=== PATIENT | female | born 1985 | race Caucasian/White ===

== ENCOUNTER 2020-01-10 14:00 | Inpatient (IN) ==
[2020-01-10] MEDS ORDERED: 0.9 % Sodium Chloride 1,000 ML IVC ONE (14:14)
[2020-01-10] MEDS ORDERED: POTASSIUM CHLORIDE IN 0.9%NACL 40 MEQ/1,000 ML IV.SOLN IV STA (14:29)
[2020-01-10] MEDS ORDERED: Potassium Chloride 40 MEQ, Lidocaine 1% 2 ML in 0.9 % Sodium Chloride 500 ML IVPB ONE (14:36)
[2020-01-10 16:08] LABS: Magnesium 2.1 mg/dL (1.6-2.6)
[2020-01-10] MEDS ORDERED: Naloxone 0.4 MG/ML INJ IVP PRN (16:23)
[2020-01-10] MEDS ORDERED: *HR* LORazepam 2 MG/ML VIAL IVP PRN (16:29)
[2020-01-10] MEDS: 0.9 % Sodium Chloride w KCl 20 MEQ/1,000 ML MLS IVC SCH (17:19)
[2020-01-10] MEDS: *HR* Heparin 5,000 UNIT/ML VIAL SQ SCH (18:37)
[2020-01-11 00:41] LABS: Basophils % 0.3 %; Eosinophils % 0.1 %; Hematocrit 37.2 % (35.3-44.9); Hemoglobin 12.5 g/dL (11.5-15.4); Immature Granulocytes % 0.3 % (0-4); Lymphocytes # 4.2 K/mcL (0.6-4.6); Lymphocytes % 30.1 %; Mean Corpuscular HGB Conc 33.6 g/dL (31.6-35.5); Mean Corpuscular Hemoglobin 29.8 pg (28.0-33.3); Mean Corpuscular Volume 88.6 fL (83.0-100.0); Mean Platelet Volume 9.9 fL (9.4-12.4); Monocytes # 0.7 K/mcL (0.0-1.3); Neutrophils # 8.9 K/mcL (1.6-8.9); Platelet Count 438 K/mcL (140-400); Red Cell Distribution Width 13.4 % (11.5-14.5); Segmented Neutrophils % 64.2 %; White Blood Count 13.9 K/mcL (4.3-11.1)
[2020-01-11 00:51] LABS: BUN/Creatinine Ratio 15 (6-26); Blood Urea Nitrogen 12 mg/dL (6-20); Calcium 8.9 mg/dL (8.6-10.3); Carbon Dioxide 23 mEq/L (23-29); Chloride 113 mEq/L (98-107); Glucose 96 mg/dL (70-105); Osmolality,Calculated 296 (280-300); Potassium 3.9 mEq/L (3.5-5.1); Sodium 143 mEq/L (136-145); eGFR For African Americans > 60 (> 60); eGFR For Non-African Americans > 60 (> 60)
[2020-01-11] MEDS: 0.9 % Sodium Chloride w KCl 20 MEQ/1,000 ML MLS IVC SCH ×2 (01:07→16:30)
[2020-01-11] MEDS: *HR* Heparin 5,000 UNIT/ML VIAL SQ SCH ×2 (06:06→17:04)
[2020-01-11] MEDS: Acetaminophen 325 MG TABLET PO PRN ×2 (17:11→23:38)
[2020-01-11] MEDS: *HR* Promethazine 25 MG/ML VIAL IM PRN (17:11)
[2020-01-11] MEDS ORDERED: 0.9 % Sodium Chloride 1,000 ML IVC SCH (20:00)
[2020-01-11] MEDS: levoFLOXacin 750 MG/150 ML 750 MG/150 ML BAG IVPB SCH (23:47)
[2020-01-12 03:43] LABS: Basophils # 0.1 K/mcL (0.0-0.2); Basophils % 0.4 %; Eosinophils % 0.2 %; Hematocrit 35.6 % (35.3-44.9); Hemoglobin 11.8 g/dL (11.5-15.4); Immature Granulocytes % 0.4 % (0-4); Lymphocytes # 3.3 K/mcL (0.6-4.6); Mean Corpuscular HGB Conc 33.1 g/dL (31.6-35.5); Mean Corpuscular Hemoglobin 30.2 pg (28.0-33.3); Mean Platelet Volume 10.6 fL (9.4-12.4); Monocytes # 0.9 K/mcL (0.0-1.3); Monocytes % 5.3 %; Neutrophils # 12.3 K/mcL (1.6-8.9); Platelet Count 358 K/mcL (140-400); Red Blood Count 3.91 M/mcL (3.82-4.97); Red Cell Distribution Width 13.1 % (11.5-14.5); Segmented Neutrophils % 73.7 %; White Blood Count 16.7 K/mcL (4.3-11.1)
[2020-01-12 04:01] LABS: BUN/Creatinine Ratio 20 (6-26); Blood Urea Nitrogen 13 mg/dL (6-20); Calcium 8.6 mg/dL (8.6-10.3); Carbon Dioxide 20 mEq/L (23-29); Chloride 111 mEq/L (98-107); Glucose 73 mg/dL (70-105); Osmolality,Calculated 291 (280-300); Potassium 3.7 mEq/L (3.5-5.1); Sodium 141 mEq/L (136-145); eGFR For African Americans > 60 (> 60); eGFR For Non-African Americans > 60 (> 60)
[2020-01-12] MEDS: *HR* Heparin 5,000 UNIT/ML VIAL SQ SCH ×2 (04:11→16:59)
[2020-01-12] MEDS: 0.9 % Sodium Chloride w KCl 20 MEQ/1,000 ML MLS IVC SCH ×2 (04:11→14:14)
[2020-01-12] MEDS: *HR* Promethazine 25 MG/ML VIAL IM PRN ×2 (07:22→14:23)
[2020-01-12 16:52] LABS: Adenovirus Not Detected (Not Detect); Bordetella Pertussis Not Detected (Not Detect); Chlamydophila pneumoniae Not Detected (Not Detect); Coronavirus 229E Not Detected (Not Detect); Coronavirus HKU1 Not Detected (Not Detect); Coronavirus NL63 Not Detected (Not Detect); Coronavirus OC43 Not Detected (Not Detect); Human Metapneumovirus Not Detected (Not Detect); Human Rhinovirus/Enterovirus Not Detected (Not Detect); Influenza A Subtype 2009 H1 Not Detected (Not Detect); Influenza B Not Detected (Not Detect); Mycoplasma pneumoniae Not Detected (Not Detect); Parainfluenza Virus 1 Not Detected (Not Detect); Parainfluenza Virus 2 Not Detected (Not Detect); Parainfluenza Virus 3 Not Detected (Not Detect); Parainfluenza Virus 4 Not Detected (Not Detect); Respiratory Syncytial Virus Not Detected (Not Detect); SARS-CoV-2 Not Detected (Not Detect)
[2020-01-13] MEDS: levoFLOXacin 750 MG/150 ML 750 MG/150 ML BAG IVPB SCH (00:02)
[2020-01-13] MEDS: 0.9 % Sodium Chloride w KCl 20 MEQ/1,000 ML MLS IVC SCH (00:02)
[2020-01-13] MEDS: *HR* Heparin 5,000 UNIT/ML VIAL SQ SCH (04:55)
[2020-01-13 05:48] LABS: Basophils # 0.1 K/mcL (0.0-0.2); Basophils % 0.5 %; Eosinophils # 0.1 K/mcL (0.0-0.6); Eosinophils % 0.8 %; Hematocrit 34.9 % (35.3-44.9); Hemoglobin 11.9 g/dL (11.5-15.4); Immature Granulocytes % 0.4 % (0-4); Lymphocytes # 3.3 K/mcL (0.6-4.6); Lymphocytes % 30.8 %; Mean Corpuscular HGB Conc 34.1 g/dL (31.6-35.5); Mean Corpuscular Hemoglobin 30.7 pg (28.0-33.3); Mean Corpuscular Volume 89.9 fL (83.0-100.0); Mean Platelet Volume 10.3 fL (9.4-12.4); Monocytes # 0.5 K/mcL (0.0-1.3); Monocytes % 4.3 %; Neutrophils # 6.7 K/mcL (1.6-8.9); Platelet Count 355 K/mcL (140-400); Red Blood Count 3.88 M/mcL (3.82-4.97); Red Cell Distribution Width 12.8 % (11.5-14.5); Segmented Neutrophils % 63.2 %; White Blood Count 10.6 K/mcL (4.3-11.1)
[2020-01-13 06:09] LABS: BUN/Creatinine Ratio 17 (6-26); Blood Urea Nitrogen 12 mg/dL (6-20); Calcium 8.4 mg/dL (8.6-10.3); Carbon Dioxide 23 mEq/L (23-29); Chloride 110 mEq/L (98-107); Glucose 98 mg/dL (70-105); Osmolality,Calculated 290 (280-300); Potassium 3.5 mEq/L (3.5-5.1); Sodium 140 mEq/L (136-145); eGFR For African Americans > 60 (> 60); eGFR For Non-African Americans > 60 (> 60)
[2020-01-13 08:20] VITALS: BP 135/90
[2020-01-13] MEDS ORDERED: FLU Vac QV 20-21 (6Month+)/PF 0.5 ML SYRINGE IM ONE (10:55)
== END 2020-01-13 12:23 | DRG 812 ==
LOC: 3BNU 14:00 → EMEROOARM 14:00 → 3BNU 17:24 → SUATTDRO 01-11 16:10
PROVIDERS: ADMIT Internal Medicine; ATTEND Internal Medicine

== ENCOUNTER 2020-02-12 14:53 | Observation (INO) ==
[2020-02-12] MEDS ORDERED: Acetaminophen 325 MG TABLET PO PRN (19:22)
[2020-02-12] MEDS ORDERED: 0.9 % Sodium Chloride 1,000 ML IVC ONE (19:38)
[2020-02-12] MEDS ORDERED: 0.9 % Sodium Chloride w KCl 40 MEQ/1,000 ML MLS IVC SCH (20:00)
[2020-02-12 20:46] LABS: BUN/Creatinine Ratio 15 (6-26); Blood Urea Nitrogen 9 mg/dL (6-20); Calcium 9.1 mg/dL (8.6-10.3); Carbon Dioxide 25 mEq/L (23-29); Chloride 110 mEq/L (98-107); Glucose 129 mg/dL (70-105); Magnesium 1.9 mg/dL (1.6-2.6); Osmolality,Calculated 296 (280-300); Sodium 143 mEq/L (136-145); eGFR For African Americans > 60 (> 60); eGFR For Non-African Americans > 60 (> 60)
[2020-02-13 03:26] LABS: BUN/Creatinine Ratio 16 (6-26); Blood Urea Nitrogen 9 mg/dL (6-20); Calcium 8.4 mg/dL (8.6-10.3); Carbon Dioxide 23 mEq/L (23-29); Chloride 114 mEq/L (98-107); Glucose 92 mg/dL (70-105); Magnesium 1.7 mg/dL (1.6-2.6); Osmolality,Calculated 296 (280-300); Potassium 3.1 mEq/L (3.5-5.1); Sodium 144 mEq/L (136-145); eGFR For African Americans > 60 (> 60); eGFR For Non-African Americans > 60 (> 60)
[2020-02-13] MEDS: *HR* Enoxaparin 40 MG/0.4 ML SYRINGE SQ SCH (05:46)
[2020-02-13 08:57] LABS: Basophils # 0.1 K/mcL (0.0-0.2); Basophils % 0.5 %; Eosinophils # 0.1 K/mcL (0.0-0.6); Eosinophils % 1.1 %; Hematocrit 33.6 % (35.3-44.9); Hemoglobin 11.3 g/dL (11.5-15.4); Immature Granulocytes % 0.3 % (0-4); Lymphocytes # 4.1 K/mcL (0.6-4.6); Lymphocytes % 40.5 %; Mean Corpuscular HGB Conc 33.6 g/dL (31.6-35.5); Mean Corpuscular Hemoglobin 29.7 pg (28.0-33.3); Mean Corpuscular Volume 88.4 fL (83.0-100.0); Mean Platelet Volume 10.3 fL (9.4-12.4); Monocytes # 0.5 K/mcL (0.0-1.3); Monocytes % 4.7 %; Neutrophils # 5.4 K/mcL (1.6-8.9); Platelet Count 392 K/mcL (140-400); Red Cell Distribution Width 13.1 % (11.5-14.5); Segmented Neutrophils % 52.9 %; White Blood Count 10.2 K/mcL (4.3-11.1)
[2020-02-13 09:07] LABS: Acetaminophen < 10 mcg/mL (10-20); Salicylate < 2.5 mg/dL (15.0-30.0)
[2020-02-13 09:09] LABS: Alanine Aminotransferase 9 Units/L (7-52); Albumin 3.6 g/dL (3.5-5.7); Albumin/Globulin Ratio 1.4 (1.1-2.2); Alkaline Phosphatase 101 Units/L (34-104); Aspartate Amino Transferase 9 Units/L (13-39); BUN/Creatinine Ratio 17 (6-26); Bilirubin,Direct 0.1 mg/dL (0.0-0.2); Bilirubin,Indirect 0.4 mg/dL (0.0-1.0); Bilirubin,Total 0.5 mg/dL (0.3-1.0); Blood Urea Nitrogen 11 mg/dL (6-20); Calcium 8.9 mg/dL (8.6-10.3); Carbon Dioxide 24 mEq/L (23-29); Chloride 115 mEq/L (98-107); Globulin 2.5 g/dL (2.4-3.5); Glucose 89 mg/dL (70-105); Magnesium 1.8 mg/dL (1.6-2.6); Osmolality,Calculated 297 (280-300); Potassium 3.7 mEq/L (3.5-5.1); Sodium 144 mEq/L (136-145); Total Protein 6.1 g/dL (6.4-8.9); eGFR For African Americans > 60 (> 60); eGFR For Non-African Americans > 60 (> 60)
[2020-02-13] MEDS: Ondansetron 4 MG/2 ML VIAL IVP PRN (09:29)
[2020-02-13 13:32] LABS: Amphetamine Screen,Urine Positive ng/mL (Cutoff=1000); Barbiturate Screen,Urine Negative ng/mL (Cutoff=200); Benzodiazepines Screen,Urine Negative ng/mL (Cutoff=200); Cannabinoid Screen,Urine Positive ng/mL (Cutoff = 50); Cocaine Screen,Urine Negative ng/mL (Cutoff= 300); Opiate Screen,Urine Negative ng/mL (Cutoff=300); Phencyclidine Screen,Urine Negative ng/mL (Cutoff=25)
[2020-02-14 05:29] LABS: Basophils # 0.1 K/mcL (0.0-0.2); Basophils % 0.4 %; Eosinophils # 0.2 K/mcL (0.0-0.6); Eosinophils % 1.1 %; Hemoglobin 11.7 g/dL (11.5-15.4); Immature Granulocytes % 0.3 % (0-4); Lymphocytes # 4.1 K/mcL (0.6-4.6); Lymphocytes % 26.6 %; Mean Corpuscular HGB Conc 33.4 g/dL (31.6-35.5); Mean Corpuscular Hemoglobin 30.3 pg (28.0-33.3); Mean Corpuscular Volume 90.7 fL (83.0-100.0); Mean Platelet Volume 10.2 fL (9.4-12.4); Monocytes # 0.8 K/mcL (0.0-1.3); Neutrophils # 10.3 K/mcL (1.6-8.9); Platelet Count 377 K/mcL (140-400); Red Blood Count 3.86 M/mcL (3.82-4.97); Segmented Neutrophils % 66.6 %
[2020-02-14 05:30] LABS: White Blood Count 15.4 K/mcL (4.3-11.1)
[2020-02-14] MEDS: *HR* Enoxaparin 40 MG/0.4 ML SYRINGE SQ SCH (05:38)
[2020-02-14 05:46] LABS: BUN/Creatinine Ratio 31 (6-26); Blood Urea Nitrogen 22 mg/dL (6-20); Calcium 8.6 mg/dL (8.6-10.3); Carbon Dioxide 25 mEq/L (23-29); Chloride 112 mEq/L (98-107); Glucose 103 mg/dL (70-105); Magnesium 1.7 mg/dL (1.6-2.6); Osmolality,Calculated 296 (280-300); Potassium 3.7 mEq/L (3.5-5.1); Sodium 141 mEq/L (136-145); eGFR For African Americans > 60 (> 60); eGFR For Non-African Americans > 60 (> 60)
[2020-02-14] MEDS: Ondansetron 4 MG/2 ML VIAL IVP PRN (09:43)
[2020-02-14] MEDS ORDERED: Nicotine 21 MG PATCH.TD24 TD SCH (10:00)
[2020-02-14 11:26] LABS: Bacteria,Urine Few per hpf (None-Few); Bilirubin,Urine Negative (Negative); Blood,Urine Trace (Negative); Clarity,Urine Clear (Clear); Color,Urine Colorless (Yellow); Glucose,Urine (UA) Normal (Normal); Ketones,Urine Negative (Negative); Leukocyte Esterase,Urine Negative (Negative); Mucus,Urine Few per lpf (None-Few); Nitrite,Urine Negative (Negative); Protein,Urine Negative (Neg-Trace); RBC,Urine 0-3 per hpf (0-3); Specific Gravity,Urine 1.013 (1.010-1.025); Squamous Epithelial Cell,Urine Few per hpf (None-Few); Urobilinogen,Urine Normal (Normal); WBC,Urine 0-3 per hpf (0-3)
[2020-02-14 11:58] VITALS: BP 142/92
== END 2020-02-14 14:15 ==
LOC: 3BNU → SUATTDRO 18:46
PROVIDERS: ADMIT Internal Medicine; ATTEND Internal Medicine

== ENCOUNTER 2020-12-14 02:56 | Inpatient (IN) ==
[2020-12-14] MEDS ORDERED: Artificial Tears SOLN 15 ML BOTTLE BOTH EYES PRN (05:58)
[2020-12-14] MEDS ORDERED: *HR* Midazolam HCl 2 MG/2 ML VIAL IV ONE (05:58)
[2020-12-14] MEDS ORDERED: FentaNYL (PF) 1,000 MCG/100 ML IV.SOLN IVC SCH (06:00)
[2020-12-14] MEDS ORDERED: Naloxone 0.4 MG/ML INJ IVP PRN (06:03)
[2020-12-14] MEDS ORDERED: 0.9 % Sodium Chloride 1,000 ML IVC SCH (06:15)
[2020-12-14 06:45] LABS: ABG Base Excess -4 mEq/L (-2 to 3); ABG HCO3 21 mEq/L (21-27); ABG Oxygen Saturation 88 % (95-98); ABG PCO2 35 mmHg (35-45); ABG PH 7.39 pH Units (7.32-7.45); ABG PO2 55 mmHg (85-104); ABG TCO2 22 mEq/L (20-26); Blood Gas VT 480 cc
[2020-12-14] MEDS ORDERED: *HR* Rocuronium Bromide 50 MG/5 ML VIAL IVP ONE (07:17)
[2020-12-14] MEDS: Artificial Tears SOLN 15 ML BOTTLE BOTH EYES SCH ×4 (07:21→20:21)
[2020-12-14] MEDS: Pantoprazole 40 MG VIAL IVP SCH (07:21)
[2020-12-14] MEDS: Chlorhexidine Rinse 15 ML MOUTHWASH MM SCH ×2 (07:22→20:20)
[2020-12-14 07:30] LABS: Creatine Kinase 8995 Units/L (30-223); Troponin I < 0.03 ng/mL (< 0.04)
[2020-12-14] MEDS: Piperacillin/Tazobactam 3.375 GM in 0.9 % Sodium Chloride Mini Bag 100 ML IVPB SCH ×2 (11:40→20:22)
[2020-12-14 12:27] LABS: BUN/Creatinine Ratio 22 (6-26); Blood Urea Nitrogen 13 mg/dL (6-20); Calcium 8.2 mg/dL (8.6-10.3); Carbon Dioxide 20 mEq/L (23-29); Chloride 113 mEq/L (98-107); Creatine Kinase 7911 Units/L (30-223); Glucose 121 mg/dL (70-105); Osmolality,Calculated 293 (280-300); Potassium 3.3 mEq/L (3.5-5.1); Sodium 141 mEq/L (136-145); Troponin I < 0.03 ng/mL (< 0.04); eGFR For African Americans > 60 (> 60); eGFR For Non-African Americans > 60 (> 60)
[2020-12-14] MEDS ORDERED: Potassium Chloride Elixir 20 MEQ/15 ML UDC GTUBE ONE (12:50)
[2020-12-14] MEDS: 0.9 % Sodium Chloride 1,000 ML IVC SCH ×2 (13:08→20:22)
[2020-12-14 14:42] LABS: Magnesium 1.6 mg/dL (1.6-2.6); Phosphorous 3.3 mg/dL (2.7-4.5)
[2020-12-14] MEDS ORDERED: *HR* Labetalol 20 MG/4 ML SYRINGE IVP PRN (14:49)
[2020-12-14] MEDS: *HR* Heparin 5,000 UNIT/ML VIAL SQ SCH (17:20)
[2020-12-14] MEDS: Folic Acid 1 MG in 0.9 % Sodium Chloride 50 ML IVPB SCH (20:21)
[2020-12-14] MEDS: Thiamine (B-1) 200 MG in 0.9 % Sodium Chloride 50 ML IVPB SCH (20:21)
[2020-12-14] MEDS ORDERED: *HR* LORazepam 2 MG/ML VIAL IVP PRN ×2 (20:36)
[2020-12-14] MEDS ORDERED: *HR* LORazepam 2 MG/ML VIAL ONE (20:52)
[2020-12-15] MEDS: *HR* LORazepam 2 MG/ML VIAL IVP PRN ×7 (03:17→23:26)
[2020-12-15] MEDS: 0.9 % Sodium Chloride 1,000 ML IVC SCH (03:19)
[2020-12-15] MEDS: Piperacillin/Tazobactam 3.375 GM in 0.9 % Sodium Chloride Mini Bag 100 ML IVPB SCH ×3 (03:31→20:00)
[2020-12-15] MEDS: *HR* Heparin 5,000 UNIT/ML VIAL SQ SCH ×3 (05:26→21:16)
[2020-12-15] MEDS: Dexmedetomidine HCl 400 MCG/100 ML MLS IVC SCH ×3 (05:51→23:18)
[2020-12-15 05:52] LABS: Alanine Aminotransferase 59 Units/L (7-52); Albumin 3.1 g/dL (3.5-5.7); Albumin/Globulin Ratio 1.4 (1.1-2.2); Alkaline Phosphatase 80 Units/L (34-104); Aspartate Amino Transferase 120 Units/L (13-39); BUN/Creatinine Ratio 21 (6-26); Bilirubin,Direct 0.2 mg/dL (0.0-0.2); Bilirubin,Indirect 0.5 mg/dL (0.0-1.0); Bilirubin,Total 0.7 mg/dL (0.3-1.0); Blood Urea Nitrogen 12 mg/dL (6-20); Calcium 8.1 mg/dL (8.6-10.3); Carbon Dioxide 21 mEq/L (23-29); Chloride 111 mEq/L (98-107); Globulin 2.2 g/dL (2.4-3.5); Glucose 110 mg/dL (70-105); Magnesium 1.9 mg/dL (1.6-2.6); Osmolality,Calculated 284 (280-300); Potassium 3.6 mEq/L (3.5-5.1); Sodium 137 mEq/L (136-145); Total Protein 5.3 g/dL (6.4-8.9); eGFR For African Americans > 60 (> 60); eGFR For Non-African Americans > 60 (> 60)
[2020-12-15] MEDS ORDERED: *HR* Enoxaparin 40 MG/0.4 ML SYRINGE SQ SCH (06:00)
[2020-12-15] MEDS ORDERED: *HR* LORazepam 2 MG/ML VIAL IVP PRN ×2 (07:59)
[2020-12-15] MEDS: Pantoprazole 40 MG VIAL IVP SCH (08:12)
[2020-12-15] MEDS: Acetaminophen 325 MG TABLET PO PRN ×2 (08:12→13:59)
[2020-12-15 08:33] LABS: Hematocrit 30.5 % (35.3-44.9); Hemoglobin 10.5 g/dL (11.5-15.4); Mean Corpuscular HGB Conc 34.4 g/dL (31.6-35.5); Mean Corpuscular Hemoglobin 30.5 pg (28.0-33.3); Mean Corpuscular Volume 88.7 fL (83.0-100.0); Mean Platelet Volume 10.3 fL (9.4-12.4); Platelet Count 256 K/mcL (140-400); Red Blood Count 3.44 M/mcL (3.82-4.97); Red Cell Distribution Width 13.3 % (11.5-14.5); White Blood Count 23.7 K/mcL (4.3-11.1)
[2020-12-15] MEDS: Folic Acid 1 MG in 0.9 % Sodium Chloride 50 ML IVPB SCH (08:42)
[2020-12-15] MEDS: Thiamine (B-1) 200 MG in 0.9 % Sodium Chloride 50 ML IVPB SCH (08:57)
[2020-12-15] MEDS ORDERED: Furosemide 40 MG/4 ML VIAL IVP ONE ×3 (10:07→17:42)
[2020-12-15 10:23] LABS: ABG Base Excess -4 mEq/L (-2 to 3); ABG HCO3 19 mEq/L (21-27); ABG Oxygen Saturation 84 % (95-98); ABG PCO2 28 mmHg (35-45); ABG PH 7.44 pH Units (7.32-7.45); ABG PO2 46 mmHg (85-104); ABG TCO2 20 mEq/L (20-26)
[2020-12-15] MEDS ORDERED: Perflutren Lipid Microsphere 1.3 ML in 0.9 % Sodium Chloride 8.7 ML IVP PRN (13:53)
[2020-12-15] MEDS ORDERED: Potassium Chloride Elixir 20 MEQ/15 ML UDC PO ONE (17:46)
[2020-12-15] MEDS: Azithromycin 500 MG in 0.9 % Sodium Chloride 250 ML IVPB SCH (18:15)
[2020-12-15] MEDS ORDERED: Acetaminophen IV 500 MG/50 ML BAG IVPB ONE (19:26)
[2020-12-15 20:16] LABS: ABG Base Excess -1 mEq/L (-2 to 3); ABG HCO3 22 mEq/L (21-27); ABG Oxygen Saturation 92 % (95-98); ABG PCO2 29 mmHg (35-45); ABG PH 7.49 pH Units (7.32-7.45); ABG PO2 57 mmHg (85-104); ABG TCO2 23 mEq/L (20-26); Blood Gas Modality 15LPM
[2020-12-15] MEDS: Vancomycin 1,250 MG/262.5 ML IV.SOLN IVPB SCH (21:19)
[2020-12-16] MEDS: Acetaminophen 325 MG TABLET PO PRN ×3 (00:26→21:41)
[2020-12-16] MEDS: *HR* LORazepam 2 MG/ML VIAL IVP PRN ×4 (04:33→20:31)
[2020-12-16] MEDS: Piperacillin/Tazobactam 3.375 GM in 0.9 % Sodium Chloride Mini Bag 100 ML IVPB SCH ×3 (04:33→18:17)
[2020-12-16] MEDS ORDERED: 0.9 % Sodium Chloride 1,000 ML IVC SCH (05:00)
[2020-12-16] MEDS: Dexmedetomidine HCl 400 MCG/100 ML MLS IVC SCH ×5 (05:08→23:28)
[2020-12-16 05:18] LABS: Hematocrit 31.6 % (35.3-44.9); Hemoglobin 10.4 g/dL (11.5-15.4); Mean Corpuscular HGB Conc 32.9 g/dL (31.6-35.5); Mean Corpuscular Hemoglobin 29.3 pg (28.0-33.3); Platelet Count 260 K/mcL (140-400); Red Blood Count 3.55 M/mcL (3.82-4.97); Red Cell Distribution Width 12.9 % (11.5-14.5); White Blood Count 23.9 K/mcL (4.3-11.1)
[2020-12-16 05:33] LABS: BUN/Creatinine Ratio 21 (6-26); Blood Urea Nitrogen 13 mg/dL (6-20); Calcium 8.4 mg/dL (8.6-10.3); Carbon Dioxide 20 mEq/L (23-29); Chloride 107 mEq/L (98-107); Glucose 110 mg/dL (70-105); Magnesium 1.9 mg/dL (1.6-2.6); Osmolality,Calculated 283 (280-300); Potassium 3.5 mEq/L (3.5-5.1); Sodium 136 mEq/L (136-145); eGFR For African Americans > 60 (> 60); eGFR For Non-African Americans > 60 (> 60)
[2020-12-16] MEDS ORDERED: Furosemide 40 MG/4 ML VIAL IVP ONE (07:19)
[2020-12-16] MEDS: Vancomycin 1,250 MG/262.5 ML IV.SOLN IVPB SCH ×2 (07:51→20:01)
[2020-12-16] MEDS: Pantoprazole 40 MG VIAL IVP SCH (07:57)
[2020-12-16] MEDS: *HR* Heparin 5,000 UNIT/ML VIAL SQ SCH ×3 (07:58→20:02)
[2020-12-16] MEDS: Thiamine (B-1) 200 MG in 0.9 % Sodium Chloride 50 ML IVPB SCH (08:42)
[2020-12-16] MEDS: Folic Acid 1 MG in 0.9 % Sodium Chloride 50 ML IVPB SCH (09:52)
[2020-12-16] MEDS: Azithromycin 500 MG in 0.9 % Sodium Chloride 250 ML IVPB SCH (17:34)
[2020-12-16] MEDS ORDERED: Ibuprofen 600 MG TABLET PO ONE (23:39)
[2020-12-17] MEDS: Piperacillin/Tazobactam 3.375 GM in 0.9 % Sodium Chloride Mini Bag 100 ML IVPB SCH ×3 (03:09→19:18)
[2020-12-17 04:46] LABS: Hematocrit 28.7 % (35.3-44.9); Hemoglobin 9.8 g/dL (11.5-15.4); Mean Corpuscular HGB Conc 34.1 g/dL (31.6-35.5); Mean Corpuscular Hemoglobin 29.4 pg (28.0-33.3); Mean Corpuscular Volume 86.2 fL (83.0-100.0); Mean Platelet Volume 9.9 fL (9.4-12.4); Platelet Count 279 K/mcL (140-400); Red Blood Count 3.33 M/mcL (3.82-4.97); Red Cell Distribution Width 12.4 % (11.5-14.5); White Blood Count 19.5 K/mcL (4.3-11.1)
[2020-12-17 05:06] LABS: BUN/Creatinine Ratio 26 (6-26); Blood Urea Nitrogen 15 mg/dL (6-20); Calcium 8.4 mg/dL (8.6-10.3); Carbon Dioxide 21 mEq/L (23-29); Chloride 105 mEq/L (98-107); Glucose 95 mg/dL (70-105); Magnesium 1.9 mg/dL (1.6-2.6); Osmolality,Calculated 283 (280-300); Potassium 3.2 mEq/L (3.5-5.1); Sodium 136 mEq/L (136-145); eGFR For African Americans > 60 (> 60); eGFR For Non-African Americans > 60 (> 60)
[2020-12-17] MEDS: *HR* Heparin 5,000 UNIT/ML VIAL SQ SCH ×3 (07:46→20:06)
[2020-12-17] MEDS: Pantoprazole 40 MG VIAL IVP SCH (07:46)
[2020-12-17] MEDS: *HR* LORazepam 2 MG/ML VIAL IVP PRN ×3 (08:57→19:28)
[2020-12-17] MEDS ORDERED: Venlafaxine XR (24 HR) 75 MG CAP.ER.24H PO SCH (09:00)
[2020-12-17 09:02] LABS: Basophils # 0.1 K/mcL (0.0-0.2); Basophils % 0.3 %; Eosinophils # 0.4 K/mcL (0.0-0.6); Eosinophils % 2.3 %; Hematocrit 28.7 % (35.3-44.9); Hemoglobin 10.1 g/dL (11.5-15.4); Immature Granulocytes % 1.2 % (0-4); Lymphocytes % 17.1 %; Mean Corpuscular HGB Conc 35.2 g/dL (31.6-35.5); Mean Corpuscular Hemoglobin 30.3 pg (28.0-33.3); Mean Corpuscular Volume 86.2 fL (83.0-100.0); Mean Platelet Volume 9.9 fL (9.4-12.4); Monocytes # 0.7 K/mcL (0.0-1.3); Monocytes % 4.3 %; Platelet Count 285 K/mcL (140-400); Red Blood Count 3.33 M/mcL (3.82-4.97); Red Cell Distribution Width 12.4 % (11.5-14.5); Segmented Neutrophils % 74.8 %; White Blood Count 17.3 K/mcL (4.3-11.1)
[2020-12-17 09:21] LABS: BUN/Creatinine Ratio 27 (6-26); Blood Urea Nitrogen 15 mg/dL (6-20); Calcium 8.5 mg/dL (8.6-10.3); Carbon Dioxide 23 mEq/L (23-29); Chloride 105 mEq/L (98-107); Glucose 90 mg/dL (70-105); Osmolality,Calculated 282 (280-300); Potassium 3.1 mEq/L (3.5-5.1); Sodium 136 mEq/L (136-145); eGFR For African Americans > 60 (> 60); eGFR For Non-African Americans > 60 (> 60)
[2020-12-17] MEDS: Dexmedetomidine HCl 400 MCG/100 ML MLS IVC SCH ×3 (09:46→21:08)
[2020-12-17] MEDS: Vancomycin 1,250 MG/262.5 ML IV.SOLN IVPB SCH ×2 (10:12→19:19)
[2020-12-17] MEDS ORDERED: Vancomycin 1,250 MG/262.5 ML IV.SOLN IVPB SCH ×2 (11:00→20:00)
[2020-12-17] MEDS ORDERED: *HR* Labetalol 20 MG/4 ML SYRINGE IVP PRN (12:08)
[2020-12-17] MEDS ORDERED: Perflutren Lipid Microsphere 1.3 ML in 0.9 % Sodium Chloride 8.7 ML IVP PRN (12:08)
[2020-12-17] MEDS ORDERED: Naloxone 0.4 MG/ML INJ IVP PRN (12:08)
[2020-12-17] MEDS ORDERED: *HR* LORazepam 2 MG/ML VIAL IVP PRN (12:08)
[2020-12-17] MEDS: Acetaminophen 325 MG TABLET PO PRN (15:41)
[2020-12-17] MEDS: Azithromycin 500 MG in 0.9 % Sodium Chloride 250 ML IVPB SCH (18:14)
[2020-12-18] MEDS: *HR* LORazepam 2 MG/ML VIAL IVP PRN ×5 (00:44→22:41)
[2020-12-18] MEDS ORDERED: Ondansetron 4 MG/2 ML VIAL IVP ONE (00:58)
[2020-12-18] MEDS: Acetaminophen 325 MG TABLET PO PRN ×2 (01:34→12:55)
[2020-12-18] MEDS: Dexmedetomidine HCl 400 MCG/100 ML MLS IVC SCH ×4 (02:38→22:27)
[2020-12-18] MEDS: Vancomycin 1,250 MG/262.5 ML IV.SOLN IVPB SCH (02:39)
[2020-12-18] MEDS: Piperacillin/Tazobactam 3.375 GM in 0.9 % Sodium Chloride Mini Bag 100 ML IVPB SCH ×3 (02:40→18:33)
[2020-12-18 06:39] LABS: Hematocrit 28.9 % (35.3-44.9); Hemoglobin 9.8 g/dL (11.5-15.4); Mean Corpuscular HGB Conc 33.9 g/dL (31.6-35.5); Mean Corpuscular Hemoglobin 30.4 pg (28.0-33.3); Mean Corpuscular Volume 89.8 fL (83.0-100.0); Mean Platelet Volume 10.8 fL (9.4-12.4); Platelet Count 241 K/mcL (140-400); Red Blood Count 3.22 M/mcL (3.82-4.97); Red Cell Distribution Width 12.6 % (11.5-14.5); White Blood Count 13.3 K/mcL (4.3-11.1)
[2020-12-18] MEDS: Pantoprazole 40 MG VIAL IVP SCH (08:13)
[2020-12-18] MEDS: Venlafaxine XR (24 HR) 75 MG CAP.ER.24H PO SCH (08:13)
[2020-12-18] MEDS: *HR* Heparin 5,000 UNIT/ML VIAL SQ SCH ×3 (08:39→22:19)
[2020-12-18 08:51] LABS: BUN/Creatinine Ratio 17 (6-26); Blood Urea Nitrogen 10 mg/dL (6-20); Calcium 8.3 mg/dL (8.6-10.3); Carbon Dioxide 16 mEq/L (23-29); Chloride 106 mEq/L (98-107); Glucose 108 mg/dL (70-105); Magnesium 1.8 mg/dL (1.6-2.6); Osmolality,Calculated 284 (280-300); Potassium 3.6 mEq/L (3.5-5.1); Sodium 137 mEq/L (136-145); eGFR For African Americans > 60 (> 60); eGFR For Non-African Americans > 60 (> 60)
[2020-12-18 10:45] LABS: BUN/Creatinine Ratio 16 (6-26); Blood Urea Nitrogen 9 mg/dL (6-20); Calcium 8.6 mg/dL (8.6-10.3); Carbon Dioxide 25 mEq/L (23-29); Chloride 107 mEq/L (98-107); Creatine Kinase 897 Units/L (30-223); Glucose 108 mg/dL (70-105); Osmolality,Calculated 287 (280-300); Potassium 3.2 mEq/L (3.5-5.1); Sodium 139 mEq/L (136-145); eGFR For African Americans > 60 (> 60); eGFR For Non-African Americans > 60 (> 60)
[2020-12-18] MEDS ORDERED: Potassium Chloride 40 MEQ, Lidocaine 1% 2 ML in 0.9 % Sodium Chloride 500 ML IVPB ONE (11:13)
[2020-12-18 12:23] LABS: Adenovirus Not Detected (Not Detect); Bordetella Pertussis Not Detected (Not Detect); Chlamydophila pneumoniae Not Detected (Not Detect); Coronavirus 229E Not Detected (Not Detect); Coronavirus HKU1 Not Detected (Not Detect); Coronavirus NL63 Not Detected (Not Detect); Coronavirus OC43 Not Detected (Not Detect); Human Metapneumovirus Not Detected (Not Detect); Human Rhinovirus/Enterovirus Not Detected (Not Detect); Influenza A Subtype 2009 H1 Not Detected (Not Detect); Influenza B Not Detected (Not Detect); Mycoplasma pneumoniae Not Detected (Not Detect); Parainfluenza Virus 1 Not Detected (Not Detect); Parainfluenza Virus 2 Not Detected (Not Detect); Parainfluenza Virus 3 Not Detected (Not Detect); Parainfluenza Virus 4 Not Detected (Not Detect); Respiratory Syncytial Virus Not Detected (Not Detect); SARS-CoV-2 Not Detected (Not Detect)
[2020-12-18] MEDS: Azithromycin 500 MG in 0.9 % Sodium Chloride 250 ML IVPB SCH (18:32)
[2020-12-18] MEDS ORDERED: QUEtiapine Fumarate 100 MG TABLET PO SCH (21:00)
[2020-12-18] MEDS: traZODone 50 MG TABLET PO SCH (22:19)
[2020-12-19] MEDS: Dexmedetomidine HCl 400 MCG/100 ML MLS IVC SCH ×4 (02:29→17:03)
[2020-12-19] MEDS: Piperacillin/Tazobactam 3.375 GM in 0.9 % Sodium Chloride Mini Bag 100 ML IVPB SCH ×3 (02:29→21:05)
[2020-12-19 03:04] LABS: Basophils # 0.1 K/mcL (0.0-0.2); Basophils % 0.6 %; Eosinophils # 0.3 K/mcL (0.0-0.6); Hematocrit 28.3 % (35.3-44.9); Hemoglobin 9.8 g/dL (11.5-15.4); Immature Granulocytes % 1.8 % (0-4); Lymphocytes # 3.4 K/mcL (0.6-4.6); Lymphocytes % 24.9 %; Mean Corpuscular HGB Conc 34.6 g/dL (31.6-35.5); Mean Corpuscular Hemoglobin 29.8 pg (28.0-33.3); Mean Platelet Volume 9.8 fL (9.4-12.4); Monocytes # 0.8 K/mcL (0.0-1.3); Monocytes % 5.8 %; Neutrophils # 8.9 K/mcL (1.6-8.9); Platelet Count 348 K/mcL (140-400); Red Blood Count 3.29 M/mcL (3.82-4.97); Red Cell Distribution Width 12.4 % (11.5-14.5); Segmented Neutrophils % 64.9 %; White Blood Count 13.7 K/mcL (4.3-11.1)
[2020-12-19] MEDS: *HR* Heparin 5,000 UNIT/ML VIAL SQ SCH ×3 (05:48→21:05)
[2020-12-19] MEDS: Venlafaxine XR (24 HR) 75 MG CAP.ER.24H PO SCH (07:54)
[2020-12-19 08:31] LABS: BUN/Creatinine Ratio 18 (6-26); Blood Urea Nitrogen 9 mg/dL (6-20); Calcium 8.7 mg/dL (8.6-10.3); Carbon Dioxide 25 mEq/L (23-29); Chloride 106 mEq/L (98-107); Glucose 102 mg/dL (70-105); Osmolality,Calculated 287 (280-300); Potassium 3.1 mEq/L (3.5-5.1); Sodium 139 mEq/L (136-145); eGFR For African Americans > 60 (> 60); eGFR For Non-African Americans > 60 (> 60)
[2020-12-19] MEDS: Pantoprazole 40 MG VIAL IVP SCH (09:09)
[2020-12-19] MEDS ORDERED: Potassium Chloride 40 MEQ, Lidocaine 1% 2 ML in 0.9 % Sodium Chloride 500 ML IVPB ONE (10:39)
[2020-12-19] MEDS: Acetaminophen 325 MG TABLET PO PRN (11:26)
[2020-12-19] MEDS: *HR* LORazepam 2 MG/ML VIAL IVP PRN ×2 (11:28→15:49)
[2020-12-19] MEDS: Ondansetron ODT 4 MG TAB.RAPDIS SL PRN (14:02)
[2020-12-19] MEDS: Nicotine 21 MG PATCH.TD24 TD SCH (14:23)
[2020-12-19] MEDS: Azithromycin 500 MG in 0.9 % Sodium Chloride 250 ML IVPB SCH (17:04)
[2020-12-19] MEDS: QUEtiapine Fumarate 100 MG TABLET PO SCH (21:04)
[2020-12-19] MEDS: traZODone 50 MG TABLET PO SCH (21:07)
[2020-12-20] MEDS: traZODone 50 MG TABLET PO SCH ×2 (00:05→20:11)
[2020-12-20] MEDS: Acetaminophen 325 MG TABLET PO PRN ×2 (00:05→09:22)
[2020-12-20] MEDS: QUEtiapine Fumarate 100 MG TABLET PO SCH ×2 (00:05→20:11)
[2020-12-20] MEDS: Dexmedetomidine HCl 400 MCG/100 ML MLS IVC SCH ×3 (00:09→18:30)
[2020-12-20 02:36] LABS: Basophils # 0.1 K/mcL (0.0-0.2); Basophils % 0.6 %; Eosinophils # 0.5 K/mcL (0.0-0.6); Eosinophils % 3.8 %; Hematocrit 28.5 % (35.3-44.9); Hemoglobin 9.6 g/dL (11.5-15.4); Immature Granulocytes % 4.5 % (0-4); Lymphocytes # 3.6 K/mcL (0.6-4.6); Mean Corpuscular HGB Conc 33.7 g/dL (31.6-35.5); Mean Corpuscular Hemoglobin 29.4 pg (28.0-33.3); Mean Corpuscular Volume 87.2 fL (83.0-100.0); Monocytes # 0.7 K/mcL (0.0-1.3); Monocytes % 5.3 %; Neutrophils # 8.2 K/mcL (1.6-8.9); Platelet Count 342 K/mcL (140-400); Red Blood Count 3.27 M/mcL (3.82-4.97); Red Cell Distribution Width 12.7 % (11.5-14.5); Segmented Neutrophils % 59.8 %; White Blood Count 13.7 K/mcL (4.3-11.1)
[2020-12-20 02:57] LABS: BUN/Creatinine Ratio 15 (6-26); Blood Urea Nitrogen 8 mg/dL (6-20); Calcium 8.6 mg/dL (8.6-10.3); Carbon Dioxide 24 mEq/L (23-29); Chloride 108 mEq/L (98-107); Glucose 138 mg/dL (70-105); Osmolality,Calculated 289 (280-300); Potassium 3.1 mEq/L (3.5-5.1); Sodium 139 mEq/L (136-145); eGFR For African Americans > 60 (> 60); eGFR For Non-African Americans > 60 (> 60)
[2020-12-20] MEDS: Piperacillin/Tazobactam 3.375 GM in 0.9 % Sodium Chloride Mini Bag 100 ML IVPB SCH ×3 (03:16→18:32)
[2020-12-20] MEDS: *HR* Heparin 5,000 UNIT/ML VIAL SQ SCH ×3 (06:04→20:12)
[2020-12-20] MEDS: *HR* LORazepam 2 MG/ML VIAL IVP PRN ×4 (06:05→20:11)
[2020-12-20] MEDS: Pantoprazole 40 MG VIAL IVP SCH (07:55)
[2020-12-20] MEDS: Venlafaxine XR (24 HR) 75 MG CAP.ER.24H PO SCH (07:55)
[2020-12-20] MEDS: Nicotine 21 MG PATCH.TD24 TD SCH (07:55)
[2020-12-20] MEDS: Ondansetron ODT 4 MG TAB.RAPDIS SL PRN (07:58)
[2020-12-20] MEDS: Potassium Chloride Elixir 20 MEQ/15 ML UDC PO SCH ×2 (10:46→20:11)
[2020-12-20] MEDS: Gabapentin 300 MG CAPSULE PO SCH ×2 (14:16→20:11)
[2020-12-20] MEDS ORDERED: cloNIDine HCL 0.1 MG TABLET PO ONE (15:50)
[2020-12-20] MEDS: Azithromycin 500 MG in 0.9 % Sodium Chloride 250 ML IVPB SCH (18:31)
[2020-12-21] MEDS: Dexmedetomidine HCl 400 MCG/100 ML MLS IVC SCH (02:30)
[2020-12-21] MEDS: Piperacillin/Tazobactam 3.375 GM in 0.9 % Sodium Chloride Mini Bag 100 ML IVPB SCH ×3 (02:30→18:09)
[2020-12-21] MEDS: *HR* LORazepam 2 MG/ML VIAL IVP PRN ×3 (02:36→22:15)
[2020-12-21] MEDS: *HR* Heparin 5,000 UNIT/ML VIAL SQ SCH ×3 (05:22→22:16)
[2020-12-21 06:02] LABS: Hematocrit 31.2 % (35.3-44.9); Hemoglobin 10.4 g/dL (11.5-15.4); Mean Corpuscular HGB Conc 33.3 g/dL (31.6-35.5); Mean Corpuscular Hemoglobin 29.5 pg (28.0-33.3); Mean Corpuscular Volume 88.6 fL (83.0-100.0); Mean Platelet Volume 9.8 fL (9.4-12.4); Platelet Count 439 K/mcL (140-400); Red Blood Count 3.52 M/mcL (3.82-4.97); Red Cell Distribution Width 12.9 % (11.5-14.5); White Blood Count 13.2 K/mcL (4.3-11.1)
[2020-12-21 06:31] LABS: Lymphocytes # 4.8 K/mcL (0.6-4.6); Monocytes # 1.1 K/mcL (0.0-1.3); Neutrophils # 6.6 K/mcL (1.6-8.9); Platelet Estimate Normal (Normal); Reactive Lymphocytes Present (Not Present)
[2020-12-21 06:56] LABS: BUN/Creatinine Ratio 16 (6-26); Blood Urea Nitrogen 11 mg/dL (6-20); Carbon Dioxide 26 mEq/L (23-29); Chloride 106 mEq/L (98-107); Glucose 91 mg/dL (70-105); Osmolality,Calculated 287 (280-300); Potassium 4.2 mEq/L (3.5-5.1); Sodium 139 mEq/L (136-145); eGFR For African Americans > 60 (> 60); eGFR For Non-African Americans > 60 (> 60)
[2020-12-21] MEDS: Venlafaxine XR (24 HR) 75 MG CAP.ER.24H PO SCH (10:03)
[2020-12-21] MEDS: Gabapentin 300 MG CAPSULE PO SCH ×3 (10:04→22:17)
[2020-12-21] MEDS: Nicotine 21 MG PATCH.TD24 TD SCH (10:04)
[2020-12-21] MEDS: Potassium Chloride Elixir 20 MEQ/15 ML UDC PO SCH ×3 (10:04→23:29)
[2020-12-21] MEDS: Ondansetron ODT 4 MG TAB.RAPDIS SL PRN (10:27)
[2020-12-21] MEDS: Azithromycin 500 MG in 0.9 % Sodium Chloride 250 ML IVPB SCH (16:51)
[2020-12-21] MEDS: Acetaminophen 325 MG TABLET PO PRN (17:02)
[2020-12-21] MEDS: traZODone 50 MG TABLET PO SCH (22:17)
[2020-12-21] MEDS: QUEtiapine Fumarate 100 MG TABLET PO SCH (22:17)
[2020-12-22] MEDS: *HR* Heparin 5,000 UNIT/ML VIAL SQ SCH ×3 (04:39→22:46)
[2020-12-22] MEDS: Piperacillin/Tazobactam 3.375 GM in 0.9 % Sodium Chloride Mini Bag 100 ML IVPB SCH ×3 (04:39→22:47)
[2020-12-22] MEDS: *HR* LORazepam 2 MG/ML VIAL IVP PRN ×3 (04:40→13:00)
[2020-12-22] MEDS: Acetaminophen 325 MG TABLET PO PRN ×3 (04:40→23:12)
[2020-12-22 05:04] LABS: Basophils # 0.1 K/mcL (0.0-0.2); Hematocrit 32.1 % (35.3-44.9); Hemoglobin 10.8 g/dL (11.5-15.4); Mean Corpuscular HGB Conc 33.6 g/dL (31.6-35.5); Mean Corpuscular Hemoglobin 29.9 pg (28.0-33.3); Mean Corpuscular Volume 88.9 fL (83.0-100.0); Mean Platelet Volume 10.1 fL (9.4-12.4); Platelet Count 481 K/mcL (140-400); Red Blood Count 3.61 M/mcL (3.82-4.97); White Blood Count 12.6 K/mcL (4.3-11.1)
[2020-12-22 05:06] LABS: BUN/Creatinine Ratio 15 (6-26); Blood Urea Nitrogen 11 mg/dL (6-20); Calcium 9.1 mg/dL (8.6-10.3); Carbon Dioxide 25 mEq/L (23-29); Chloride 105 mEq/L (98-107); Glucose 132 mg/dL (70-105); Osmolality,Calculated 291 (280-300); Potassium 3.7 mEq/L (3.5-5.1); Sodium 140 mEq/L (136-145); eGFR For African Americans > 60 (> 60); eGFR For Non-African Americans > 60 (> 60)
[2020-12-22 08:28] LABS: Eosinophils # 0.5 K/mcL (0.0-0.6); Lymphocytes # 3.9 K/mcL (0.6-4.6); Monocytes # 0.8 K/mcL (0.0-1.3); Neutrophils # 6.8 K/mcL (1.6-8.9); Platelet Estimate Increased (Normal); Reactive Lymphocytes Present (Not Present)
[2020-12-22] MEDS: Gabapentin 300 MG CAPSULE PO SCH ×3 (08:53→22:46)
[2020-12-22] MEDS: Potassium Chloride Elixir 20 MEQ/15 ML UDC PO SCH (08:53)
[2020-12-22] MEDS: Venlafaxine XR (24 HR) 75 MG CAP.ER.24H PO SCH (08:53)
[2020-12-22] MEDS: Nicotine 21 MG PATCH.TD24 TD SCH (08:53)
[2020-12-22] MEDS: *HR* LORazepam 1 MG TABLET PO PRN ×2 (16:07→23:12)
[2020-12-22] MEDS: QUEtiapine Fumarate 100 MG TABLET PO SCH (22:46)
[2020-12-22] MEDS: traZODone 50 MG TABLET PO SCH (22:46)
[2020-12-22] MEDS: Ondansetron ODT 4 MG TAB.RAPDIS SL PRN (23:12)
[2020-12-23] MEDS ORDERED: Ketorolac 30 MG/ML VIAL IVP ONE (02:02)
[2020-12-23 03:58] LABS: Hematocrit 34.3 % (35.3-44.9); Hemoglobin 11.5 g/dL (11.5-15.4); Mean Corpuscular HGB Conc 33.5 g/dL (31.6-35.5); Mean Corpuscular Hemoglobin 29.9 pg (28.0-33.3); Mean Corpuscular Volume 89.1 fL (83.0-100.0); Mean Platelet Volume 9.9 fL (9.4-12.4); Platelet Count 573 K/mcL (140-400); Red Blood Count 3.85 M/mcL (3.82-4.97); Red Cell Distribution Width 12.9 % (11.5-14.5); White Blood Count 14.3 K/mcL (4.3-11.1)
[2020-12-23 04:14] LABS: BUN/Creatinine Ratio 16 (6-26); Blood Urea Nitrogen 12 mg/dL (6-20); Calcium 9.3 mg/dL (8.6-10.3); Carbon Dioxide 25 mEq/L (23-29); Chloride 104 mEq/L (98-107); Glucose 92 mg/dL (70-105); Osmolality,Calculated 285 (280-300); Sodium 138 mEq/L (136-145); eGFR For African Americans > 60 (> 60); eGFR For Non-African Americans > 60 (> 60)
[2020-12-23] MEDS: Piperacillin/Tazobactam 3.375 GM in 0.9 % Sodium Chloride Mini Bag 100 ML IVPB SCH (04:41)
[2020-12-23 04:52] LABS: Lymphocytes # 4.3 K/mcL (0.6-4.6); Monocytes # 1.1 K/mcL (0.0-1.3); Neutrophils # 8.3 K/mcL (1.6-8.9); Platelet Estimate Increased (Normal); Reactive Lymphocytes Present (Not Present)
[2020-12-23] MEDS: *HR* Heparin 5,000 UNIT/ML VIAL SQ SCH ×2 (05:50→14:17)
[2020-12-23] MEDS: Gabapentin 300 MG CAPSULE PO SCH (07:41)
[2020-12-23] MEDS: Nicotine 21 MG PATCH.TD24 TD SCH (07:41)
[2020-12-23] MEDS: *HR* LORazepam 1 MG TABLET PO PRN ×2 (07:41→13:43)
[2020-12-23] MEDS: Venlafaxine XR (24 HR) 75 MG CAP.ER.24H PO SCH (07:41)
[2020-12-23] MEDS ORDERED: 0.9 % Sodium Chloride 1,000 ML IVC ONE (10:00)
[2020-12-23 11:39] VITALS: BP 113/59; PULSE 122; TEMP 98.4; O2SAT 93
[2020-12-23] MEDS: Acetaminophen 325 MG TABLET PO PRN (11:48)
== END 2020-12-23 14:40 | DRG 720 ==
LOC: SUATTDRO 04:59 → ICNU 04:59 → 2NNU 20:14 → 2NENU 12-21 12:08
PROVIDERS: ADMIT Student in an Organized Health Care Education/Training Program; ATTEND Internal Medicine

== ENCOUNTER 2020-12-23 14:39 | Inpatient (IN) ==
[2020-12-23] MEDS ORDERED: Haloperidol Lactate 5 MG/ML VIAL IM PRN (14:49)
[2020-12-23] MEDS ORDERED: *HR* LORazepam 2 MG/ML VIAL IM PRN (14:49)
[2020-12-23] MEDS ORDERED: haloperidoL 5 MG TABLET PO PRN (14:49)
[2020-12-23] MEDS ORDERED: MOM Conc 10 ML UD.LIQ PO PRN (14:49)
[2020-12-23] MEDS ORDERED: Mag Hydrox/Al Hydrox/Simeth 30 ML UDC PO PRN (14:49)
[2020-12-23] MEDS ORDERED: *HR* LORazepam 1 MG TABLET PO PRN (14:49)
[2020-12-23] MEDS: Gabapentin 300 MG CAPSULE PO SCH ×2 (16:26→21:16)
[2020-12-23] MEDS: Ibuprofen 400 MG TABLET PO PRN (16:26)
[2020-12-23] MEDS: hydrOXYzine pamoate 25 MG CAPSULE PO PRN (18:12)
[2020-12-23] MEDS ORDERED: QUEtiapine Fumarate 100 MG TABLET PO SCH (21:00)
[2020-12-23] MEDS: traZODone 50 MG TABLET PO SCH (21:16)
[2020-12-23] MEDS: Neosporin OINT 15 GM TUBE TP SCH (22:06)
[2020-12-24] MEDS: Ibuprofen 400 MG TABLET PO PRN ×4 (03:29→20:56)
[2020-12-24] MEDS: hydrOXYzine pamoate 25 MG CAPSULE PO PRN ×4 (03:29→20:27)
[2020-12-24] MEDS: Nicotine 21 MG PATCH.TD24 TD SCH (08:46)
[2020-12-24] MEDS: Loratadine 10 MG TABLET PO SCH (08:47)
[2020-12-24] MEDS: Gabapentin 300 MG CAPSULE PO SCH ×3 (08:47→20:27)
[2020-12-24] MEDS: Neosporin OINT 15 GM TUBE TP SCH ×2 (08:49→20:30)
[2020-12-24] MEDS: Venlafaxine XR (24 HR) 75 MG CAP.ER.24H PO SCH (08:49)
[2020-12-24] MEDS ORDERED: amLODIPine 5 MG TABLET PO SCH (09:00)
[2020-12-24] MEDS ORDERED: Ondansetron ODT 4 MG TAB.RAPDIS SL PRN (09:35)
[2020-12-24] MEDS: ARIPiprazole 5 MG TABLET PO SCH (09:45)
[2020-12-24] MEDS: QUEtiapine Fumarate 100 MG TABLET PO SCH (20:27)
[2020-12-24] MEDS: traZODone 50 MG TABLET PO SCH (20:27)
[2020-12-24] MEDS ORDERED: clonazePAM 1 MG TABLET PO SCH (21:00)
[2020-12-25] MEDS: Ibuprofen 400 MG TABLET PO PRN ×2 (04:52→11:45)
[2020-12-25] MEDS: ARIPiprazole 5 MG TABLET PO SCH (09:10)
[2020-12-25] MEDS: Loratadine 10 MG TABLET PO SCH (09:10)
[2020-12-25] MEDS: Gabapentin 300 MG CAPSULE PO SCH ×3 (09:10→20:39)
[2020-12-25] MEDS: Venlafaxine XR (24 HR) 75 MG CAP.ER.24H PO SCH (09:10)
[2020-12-25] MEDS: hydrOXYzine pamoate 25 MG CAPSULE PO PRN ×2 (09:10→16:09)
[2020-12-25] MEDS: Nicotine 21 MG PATCH.TD24 TD SCH (09:13)
[2020-12-25] MEDS: Neosporin OINT 15 GM TUBE TP SCH ×2 (09:16→20:45)
[2020-12-25] MEDS: clonazePAM 1 MG TABLET PO SCH (14:13)
[2020-12-25] MEDS: amLODIPine 5 MG TABLET PO SCH (20:39)
[2020-12-25] MEDS: QUEtiapine Fumarate 100 MG TABLET PO SCH (20:39)
[2020-12-25] MEDS: traZODone 50 MG TABLET PO SCH (20:40)
[2020-12-26] MEDS: Ibuprofen 400 MG TABLET PO PRN ×3 (02:52→16:58)
[2020-12-26] MEDS: Nicotine 21 MG PATCH.TD24 TD SCH (08:05)
[2020-12-26] MEDS: Gabapentin 300 MG CAPSULE PO SCH ×3 (08:06→20:31)
[2020-12-26] MEDS: ARIPiprazole 5 MG TABLET PO SCH (08:06)
[2020-12-26] MEDS: clonazePAM 1 MG TABLET PO SCH (08:06)
[2020-12-26] MEDS: Loratadine 10 MG TABLET PO SCH (08:07)
[2020-12-26] MEDS: VENLAFAXINE PO SCH (08:07)
[2020-12-26] MEDS: Neosporin OINT 15 GM TUBE TP SCH ×2 (08:09→20:16)
[2020-12-26] MEDS ORDERED: Venlafaxine XR (24 HR) 150 MG CAP.ER.24H PO SCH (09:00)
[2020-12-26] MEDS: hydrOXYzine pamoate 25 MG CAPSULE PO PRN ×2 (15:28→20:34)
[2020-12-26] MEDS: traZODone 50 MG TABLET PO SCH (20:31)
[2020-12-26] MEDS: QUEtiapine Fumarate 100 MG TABLET PO SCH (20:31)
[2020-12-26] MEDS: amLODIPine 5 MG TABLET PO SCH (20:31)
[2020-12-27] MEDS: Ibuprofen 400 MG TABLET PO PRN (03:13)
[2020-12-27] MEDS: ARIPiprazole 5 MG TABLET PO SCH (08:50)
[2020-12-27] MEDS: Gabapentin 300 MG CAPSULE PO SCH (08:50)
[2020-12-27] MEDS: Nicotine 21 MG PATCH.TD24 TD SCH (08:50)
[2020-12-27] MEDS: VENLAFAXINE PO SCH (08:50)
[2020-12-27] MEDS: Loratadine 10 MG TABLET PO SCH (08:50)
[2020-12-27] MEDS: clonazePAM 1 MG TABLET PO SCH (08:50)
[2020-12-27] MEDS: Neosporin OINT 15 GM TUBE TP SCH (08:52)
[2020-12-27 08:56] VITALS: BP 129/83; PULSE 125; TEMP 98.7; O2SAT 96
== END 2020-12-27 11:05 | disposition home or self-care (01) | DRG 753 ==
LOC: 1ANU 14:39
PROVIDERS: ADMIT Psychiatry & Neurology Psychiatry; ATTEND Psychiatry & Neurology Psychiatry